=== PATIENT | female | born 2005 | race African-American/Black ===

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

== ENCOUNTER 2023-04-11 02:30 | Emergency (ER) | payer MEDICAID ==
[~2023-04-11] VITALS: Ht 165.1 cm; Wt 77.0 kg
[~2023-04-11 02:30] MED LIST: ACET-2708 MT; METO-293 MT
[2023-04-11 02:41] VITALS: BP 112/76
== END 2023-04-11 03:00 | disposition left against medical advice (07) ==
LOC: ER 02:30
DX: Z53.21 Procedure and treatment not carried out due to patient leaving prior to being seen by health care provider (principal); I49.9 Cardiac arrhythmia, unspecified
CPT/HCPCS: 93005; 99281